=== PATIENT | male | born 1980 | race Caucasian/White ===

== ENCOUNTER 2016-11-30 21:48 | Emergency (ER) | payer SELFPAY ==
[~2016-11-30] VITALS: Ht 180.3 cm; Wt 91.7 kg
[2016-11-30 21:54] VITALS: BP 134/92; PULSE 87; RESP 16; TEMP 98.4; O2SAT 99
--- NOTE | 2016-11-30 23:54 | PD ---
HPI Chief Complaint: General Weakness Time Seen by Provider: 23:44 Travel History International Travel<30 days: No Contact w/Intl Traveler<30days: No Traveled to known affect area: No History of Present Illness HPI The patient is a 36-year-old male that feels he has heat cramps today. He gets these on occasion. He was working in the sun and felt like he can get cool. He has cramping in the hands and feet and shoulders. He states when he was younger he is to donate plasma. He states that when they gave and the saline he felt much better. He wants an IV of saline. He states he usually drinks a lot of Gatorade but did not today, he only drank 2 glasses and this may be why he got cramps. [facility] Social History Tobacco Use: No Allergies-Medications (Allergen,Severity, Reaction): Coded Allergies: No Known Allergies (Unverified , 11/30/16) Reported Meds & Prescriptions Reported Meds & Active Scripts Active K-Tab (Potassium Chloride) 20 Meq Tab 20 Meq PO DAILY Review of Systems Except as stated in HPI: all other systems reviewed are Neg Physical Exam Narrative GENERAL: The patient is alert, oriented 3 in no apparent distress. His vital signs show blood pressure 134/92 but otherwise normal. SKIN: Focused skin assessment warm/dry. HEAD: Atraumatic. Normocephalic. EYES: Pupils equal and round. No scleral icterus. No injection or drainage. ENT: No nasal bleeding or discharge. Mucous membranes pink and moist. NECK: Trachea midline. No JVD. CARDIOVASCULAR: Regular rate and rhythm. No murmur appreciated. RESPIRATORY: No accessory muscle use. Clear to auscultation. Breath sounds equal bilaterally. GASTROINTESTINAL: Abdomen soft, non-tender, nondistended. Hepatic and splenic margins not palpable. MUSCULOSKELETAL: No obvious deformities. No clubbing. No cyanosis. No edema. There is no tenderness over the musculature no cramps at this time. NEUROLOGICAL: Awake and alert. No obvious cranial nerve deficits. Motor grossly within normal limits. Normal speech. PSYCHIATRIC: Appropriate mood and affect; insight and judgment normal. Data Data Last Documented VS Vital Signs Date Time Temp Pulse Resp B/P Pulse Ox O2 Delivery O2 Flow Rate FiO2 12/01/16 01:02 84 16 124/77 98 Room Air 11/30/16 21:54 98.4 Orders Complete Blood Count With Diff (11/30/16 23:54) Basic Metabolic Panel (Bmp) (11/30/16 23:54) Sodium Chlor 0.9% 1000 Ml Inj (Ns 1000 M (12/01/16 00:00) Potassium Chloride (Kcl) (12/01/16 00:45) Labs Laboratory Tests Test 12/01/16 00:10 White Blood Count 16.0 TH/MM3 Red Blood Count 5.57 MIL/MM3 Hemoglobin 16.6 GM/DL Hematocrit 48.8 % Mean Corpuscular Volume 87.6 FL Mean Corpuscular Hemoglobin 29.9 PG Mean Corpuscular Hemoglobin 34.1 % Concent Red Cell Distribution Width 12.1 % Platelet Count 350 TH/MM3 Mean Platelet Volume 8.2 FL Neutrophils (%) (Auto) 71.4 % Lymphocytes (%) (Auto) 21.6 % Monocytes (%) (Auto) 6.2 % Eosinophils (%) (Auto) 0.3 % Basophils (%) (Auto) 0.5 % Neutrophils # (Auto) 11.5 TH/MM3 Lymphocytes # (Auto) 3.4 TH/MM3 Monocytes # (Auto) 1.0 TH/MM3 Eosinophils # (Auto) 0.0 TH/MM3 Basophils # (Auto) 0.1 TH/MM3 CBC Comment DIFF FINAL Differential Comment Sodium Level 139 MEQ/L Potassium Level 3.0 MEQ/L Chloride Level 105 MEQ/L Carbon Dioxide Level 25.0 MEQ/L Anion Gap 9 MEQ/L Blood Urea Nitrogen 15 MG/DL Creatinine 1.20 MG/DL Estimat Glomerular Filtration 68 ML/MIN Rate Random Glucose 100 MG/DL Calcium Level 9.2 MG/DL [facility] Medical Decision Making Medical Screen Exam Complete: Yes Emergency Medical Condition: Yes Medical Record Reviewed: Yes Interpretation(s) The CBC shows a white count of 16,000 but is otherwise unremarkable. The basic metabolic profile shows a potassium of 3.0 with a GFR of 68 but is otherwise normal. Differential Diagnosis Electrolyte disorder, heat cramps, dehydration, occult infection Narrative Course The patient does have a hypokalemia. This may be the reason he does get cramping. He will be given K-Tabs supplement. He is to drink plenty of liquids since they away from the heat as best he can. It is now 0129 and the patient feels much better and wants to go home. Impressions: Heat cramps, hypokalemia Diagnosis Primary Impression: Heat cramps Additional Impression: Hypokalemia Additional Instructions: Avoid the heat as best you can. We will try replacing the potassium to see if this helps your cramping. Follow-up with her primary care physician next week. Med/Other Pt SpecificInfo: Prescription(s) given Scripts Potassium Chloride ER (K-Tab)20 Meq Tab20 Meq PO DAILY #30 TAB Ref 0 Prov:Jeremy Prince MD 12/01/16 Disposition: 01 DISCHARGE HOME Condition: Stable Jeremy Prince MD November 30, 2016 23:54 Condition: Jeremy Reulas MD November 30, 2016 23:54
[2016-12-01] MEDS ORDERED: SODIUM CHLOR 0.9% 1000 ML INJ 1,000 ML IV SCH
[2016-12-01 00:24] LABS: AUTOMATED NEUTROPHIL # 11.5 TH/MM3 (1.8-7.7); BASOPHIL # 0.1 TH/MM3 (0-0.2); BASOPHIL % 0.5 % (0.0-2.0); EOSINOPHIL % 0.3 % (0.0-4.0); HEMATOCRIT 48.8 % (39.0-51.0); HEMO FLAGS DIFF FINAL; LYMPH % 21.6 % (9.0-44.0); LYMPHOCYTE # 3.4 TH/MM3 (1.0-4.8); MEAN CELL VOLUME 87.6 FL (80.0-100.0); MEAN CORPUSCULAR HEMOGLOBIN 29.9 PG (27.0-34.0); MEAN CORPUSCULAR HGB CONC 34.1 % (32.0-36.0); MONO % 6.2 % (0.0-8.0); NEUT % 71.4 % (16.0-70.0); PLATELET COUNT 350 TH/MM3 (150-450); RED BLOOD COUNT 5.57 MIL/MM3 (4.50-5.90); RED CELL DISTRIBUTION WIDTH 12.1 % (11.6-17.2)
[2016-12-01] MEDS ORDERED: POTASSIUM CHLORIDE 20 MEQ CONTROLLED RELEASE TAB PO ONE (00:45)
[2016-12-01 01:02] VITALS: BP 124/77; PULSE 84; RESP 16; O2SAT 98
[2016-12-01] MEDS ORDERED: POTA1TAB4 PO (01:23)
== END 2016-12-01 01:45 | disposition home or self-care (01) ==
LOC: PHED 21:48
DX: T67.2XXA Heat cramp, initial encounter (principal); E87.6 Hypokalemia
CPT/HCPCS: 80048; 85025; 96360; 99283; J7030